=== PATIENT | female | born 1975 | race Native Hawaiian/Other Pacific Islander ===

== ENCOUNTER 2019-01-21 10:19 | Outpatient (CLI) | payer BC ==
[2019-01-21 10:41] LABS: PLATELET COUNT 251 K/uL (152-353)
[2019-01-21 11:13] LABS: POTASSIUM 4.6 mmol/L (3.6-5.2)
== END 2019-01-21 21:06 | disposition home or self-care (01) ==
LOC: LABW 10:19
PROVIDERS: Nurse Practitioner
DX: R10.11 Right upper quadrant pain (principal)
CPT/HCPCS: 36415; 80053; 80074; 82150; 83690; 85027; 85651

== ENCOUNTER 2019-01-29 07:46 | Outpatient (CLI) | payer BC | END 2019-01-29 20:27 | disposition home or self-care (01) | LOC: CT 07:46 | DX: R91.8 Other nonspecific abnormal finding of lung field (principal) | CPT/HCPCS: Q9963 ==

== ENCOUNTER 2020-11-17 10:53 | Outpatient (CLI) | payer BC | END 2020-11-17 21:51 | disposition home or self-care (01) | LOC: RAD 10:53 | PROVIDERS: ATTEND Nurse Practitioner | DX: M79.672 Pain in left foot (principal) ==

== ENCOUNTER 2021-04-01 09:34 | Outpatient (CLI) | payer BC | END 2021-04-01 19:04 | disposition home or self-care (01) | LOC: MAMMO 09:34 | PROVIDERS: ATTEND Registered Nurse | DX: Z12.31 Encounter for screening mammogram for malignant neoplasm of breast (principal) ==

== ENCOUNTER 2021-04-19 10:07 | Outpatient (CLI) | payer BC | END 2021-04-19 23:59 | disposition home or self-care (01) | LOC: US 10:07 | PROVIDERS: ATTEND Registered Nurse | DX: Z12.31 Encounter for screening mammogram for malignant neoplasm of breast (principal) ==

== ENCOUNTER 2021-06-28 11:02 | Outpatient (CLI) | payer BC | END 2021-06-28 20:35 | disposition home or self-care (01) | LOC: MAMMO 11:02 | PROVIDERS: ATTEND Surgery | DX: Z98.890 Other specified postprocedural states (principal) ==

== ENCOUNTER 2021-07-27 09:38 | Outpatient (CLI) | payer BC ==
[2021-07-27 10:42] LABS: POTASSIUM 3.8 mmol/L (3.6-5.2)
== END 2021-07-27 19:22 | disposition home or self-care (01) ==
LOC: RESP 09:38
PROVIDERS: ATTEND Surgery
DX: Z01.818 Encounter for other preprocedural examination (principal)
CPT/HCPCS: 36415; 80048; 93005

== ENCOUNTER 2021-08-09 15:47 | Outpatient (CLI) | payer BC ==
[2021-08-09 16:16] LABS: PLATELET COUNT 269 K/uL (152-353)
[2021-08-09 16:32] LABS: POTASSIUM 4.1 mmol/L (3.6-5.2)
== END 2021-08-09 21:58 | disposition home or self-care (01) ==
LOC: LABW 15:47
PROVIDERS: ATTEND Nurse Practitioner
DX: R53.83 Other fatigue (principal); R53.1 Weakness
CPT/HCPCS: 36415; 80053; 83540; 83550; 84439; 84443; 85027

== ENCOUNTER 2022-12-18 10:13 | Outpatient (CLI) | payer BC | END 2022-12-18 18:57 | disposition home or self-care (01) | LOC: MAMMO 10:13 | PROVIDERS: ATTEND Physician Assistant | DX: Z12.31 Encounter for screening mammogram for malignant neoplasm of breast (principal) ==